=== PATIENT | female | born 1960 | race Caucasian/White ===

== ENCOUNTER 2016-10-13 13:52 | Inpatient (IN) | payer MEDICARE ==
[~2016-10-13] VITALS: Ht 165.1 cm; Wt 87.3 kg
[~2016-10-13 13:52] MED LIST: ALBUTEROL INH; BACL10TA2 OR; IBUP600T OR; LIDO5DIS EX; MAXA10TA17 OR; MIRALEX PO; NEUR300C OR; NEUR400C OR; NORT25CA2 PO; OMEP20CA3 PO; OPAN10TA17 OR; OXYC10TA97 PO; PERC5TAB8 OR; PREG100CA OR; PROM25TA3 PO; PROZ20CA OR; RANI150C PO; SENN15TA2 OR; SKEL800T5 OR; STOOL SOFTNER PO; SYMB80AE IN; TIZA4TAB OR; TRAM50TA2 OR; TYLE650T25 PO; VALI5TAB OR; VOLT1GEL TOP; ZOFR8TAB OR
[2016-10-13] MEDS ORDERED: FLEET ENEMA PR PRN (15:30)
[2016-10-13] MEDS ORDERED: HYDROmorphone (DILAUDID) 4 MG TAB PO PRN (15:30)
[2016-10-13] MEDS ORDERED: SIMETHICONE 80 MG CHEW TAB PO PRN (15:30)
[2016-10-13 16:00] VITALS: BP 169/77
[2016-10-13] MEDS ORDERED: ANALGESIC BALM CRM 120 GM TOP PRN (16:15)
[2016-10-13] MEDS ORDERED: PANT40TA2 PO (17:02)
[2016-10-13] MEDS ORDERED: DILA2TAB6 PO (17:02)
[2016-10-13] MEDS ORDERED: BUSP1TAB PO (17:02)
[2016-10-13] MEDS ORDERED: TYLE325C PO (17:02)
[2016-10-13] MEDS ORDERED: LIDO5TD TOP (17:02)
[2016-10-13] MEDS ORDERED: GABA-282 PO (17:02)
[2016-10-13] MEDS ORDERED: FLUO20CA19 PO (17:02)
[2016-10-13] MEDS ORDERED: MAXA10TA14 PO (17:03)
[2016-10-13 17:07] LABS: MEAN CORPUSCULAR HEMOGLOBIN 31.3 pg (27.0-33.0); MEAN CORPUSCULAR HGB CONC 32.9 g/dl (32.0-36.5); MEAN CORPUSCULAR VOLUME 95.3 fl (80.0-96.0); RED CELL DISTRIBUTION WIDTH 12.9 % (11.5-14.5); WHITE BLOOD COUNT 6.4 K/mm3 (4.0-10.0)
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
[2016-10-13] MEDS: NYSTATIN 500,000 U/5 ML SUSP UDC SSP SCH ×2 (18:16→21:37)
[2016-10-13] MEDS: GABAPENTIN 300 MG CAP PO SCH ×2 (18:16→21:38)
[2016-10-13] MEDS: HYDROmorphone 2 MG TAB PO PRN ×2 (18:17→22:31)
[2016-10-13] MEDS: ACETAMINOPHEN TAB 650MG DOSE (2X325MG) PO PRN (19:55)
[2016-10-13 20:00] VITALS: BP 138/63
[2016-10-13] MEDS: **NOTE PATIENT COMMENT** MISC XX SCH (21:00)
[2016-10-13] MEDS: BETHANECHOL 10 MG TAB PO SCH (21:37)
[2016-10-13] MEDS: HEPARIN SOD (PORCINE) 5000 UNITS/ML VIAL SC SCH (21:37)
[2016-10-13] MEDS: busPIRone 5 MG TAB PO SCH (21:37)
[2016-10-13] MEDS: FLUoxetine 20 MG CAP PO SCH (21:38)
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
[2016-10-14] MEDS: HYDROmorphone 2 MG TAB PO PRN ×5 (02:59→22:18)
[2016-10-14 06:00] VITALS: BP 162/80
[2016-10-14] MEDS: ACETAMINOPHEN TAB 650MG DOSE (2X325MG) PO PRN (06:01)
[2016-10-14 07:46] LABS: BASO # 0.1 K/mm3 (0.0-0.2); BASO % 0.9 % (0.0-1.0); EOS # 0.3 K/mm3 (0.0-0.50); EOS % 4.5 % (0.0-3.0); LARGE UNSTAINED CELL # 0.2 K/mm3 (0.0-0.4); LYMPH # 1.2 K/mm3 (1.5-4.5); LYMPH % 17.4 % (24.0-44.0); MEAN CORPUSCULAR HEMOGLOBIN 31.5 pg (27.0-33.0); MEAN CORPUSCULAR HGB CONC 33.1 g/dl (32.0-36.5); MEAN CORPUSCULAR VOLUME 95.3 fl (80.0-96.0); MONO # 0.4 K/mm3 (0.0-0.8); NEUTROPHILS # 4.9 K/mm3 (1.8-7.7); NEUTROPHILS % 69.3 % (36.0-66.0); PLATELET COUNT, AUTOMATED 413 k/mm3 (150-450); WHITE BLOOD COUNT 7.1 K/mm3 (4.0-10.0)
[2016-10-14 07:47] LABS: ALBUMIN 2.1 GM/DL (3.2-5.2); ALBUMIN/GLOBULIN RATIO 0.72 (1.00-1.93); ALKALINE PHOSPHATASE 78 U/L (45-117); ALT/SGPT 53 U/L (12-78); ANION GAP 8 MEQ/L (8-16); AST/SGOT 75 U/L (15-37); BILIRUBIN,TOTAL 0.6 MG/DL (0.2-1.0); BLOOD UREA NITROGEN 7 MG/DL (7-18); CALCIUM LEVEL 8.2 MG/DL (8.5-10.1); CARBON DIOXIDE LEVEL 36 MEQ/L (21-32); CHLORIDE LEVEL 98 MEQ/L (98-107); CREATININE FOR GFR 0.37 MG/DL (0.55-1.02); GLOMERULAR FILTRATION RATE > 60.0 (>51); GLUCOSE, FASTING 100 MG/DL (70-105); MAGNESIUM LEVEL 1.9 MG/DL (1.8-2.4); POTASSIUM SERUM 3.1 MEQ/L (3.5-5.1); SODIUM LEVEL 142 MEQ/L (136-145)
[2016-10-14] MEDS: FLUoxetine 20 MG CAP PO SCH ×2 (08:22→22:03)
[2016-10-14] MEDS: BETHANECHOL 10 MG TAB PO SCH ×2 (08:22→22:03)
[2016-10-14] MEDS: GABAPENTIN 300 MG CAP PO SCH (08:22)
[2016-10-14] MEDS: OMEPRAZOLE 20 MG CAP PO SCH (08:22)
[2016-10-14] MEDS: busPIRone 5 MG TAB PO SCH ×2 (08:23→22:04)
[2016-10-14] MEDS: HEPARIN SOD (PORCINE) 5000 UNITS/ML VIAL SC SCH ×2 (08:23→22:05)
[2016-10-14] MEDS: NYSTATIN 500,000 U/5 ML SUSP UDC SSP SCH ×3 (08:23→22:04)
[2016-10-14] MEDS: LIDOCAINE 5% (LIDODERM) PATCH TD SCH (08:24)
[2016-10-14] MEDS ORDERED: FLUoxetine 20 MG CAP PO SCH (09:00)
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
[2016-10-14] MEDS ORDERED: POTASSIUM CHLORIDE 10 MEQ SR TABLET PO ONE (12:00)
[2016-10-14] MEDS ORDERED: ISOVUE-370 76% 100ML VIAL (Q9967) As Ordered ONE (12:46)
[2016-10-14 12:51] LABS: FERRITIN 579 NG/ML (8-252); PERCENT SATURATION 29.3 % (13.2-45.0); TOTAL IRON BINDING CAPACITY 164 UG/DL (250-450)
[2016-10-14 12:53] LABS: FOLATE 10.7 NG/ML (>5.4); VITAMIN B12 LEVEL 661 PG/ML (247-911)
[2016-10-14 14:00] VITALS: BP 146/74
--- NOTE | 2016-10-14 14:00 | REP ---
Bilateral lower extremity Duplex Doppler venous ultrasound: Real time compression and duplex Doppler interrogation of the bilateral lower extremity deep venous system is performed. Bilaterally, the common femoral, superficial femoral and popliteal veins are fully compressible with transducer pressure and demonstrate normal spontaneous and phasic flow, without evidence of deep venous thrombosis. Impression: No evidence of deep venous thrombosis of the bilateral lower extremity femoral popliteal venous system. Signed by Mu Valdez MD 10/14/2016 01:52 P
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
--- NOTE | 2016-10-14 14:35 | REP ---
CT of the chest, CT pulmonary angiography: There are no comparison chest CT studies. The study is performed with intravenous contrast. There are no emboli in the pulmonary trunk or in the central pulmonary arteries. There are no emboli in the pulmonary artery lobe or segment branches. There are moderate bilateral pleural effusions. There are no infiltrates. There are no nodules or masses. There is a nondisplaced fracture posteriorly in the right 12th rib at the costovertebral junction. There are pedicle screws and stabilization rods spanning the thoracolumbar junction. No vertebral body compression deformities are identified. No sternal fractures are identified. No clavicle or scapular fractures are identified. There is no mediastinal hematoma. The thoracic aorta is unremarkable. The cardiac size is upper normal. The visualized upper abdominal contents are unremarkable. Impression: No evidence of pulmonary embolus. Moderate bilateral pleural effusions. A nondisplaced right 12th rib fracture posteriorly at the costovertebral junction. Spinal stabilization rods at the thoracolumbar junction. Signed by Mu Bermudez MD 10/14/2016 02:27 P
[2016-10-14] MEDS: NS 1,000 ML IV SCH (15:31)
[2016-10-14] MEDS: GABAPENTIN 400 MG CAP PO SCH ×2 (17:23→22:03)
[2016-10-14 20:30] VITALS: BP 162/93
[2016-10-14] MEDS: **NOTE PATIENT COMMENT** MISC XX SCH (21:00)
[2016-10-15] MEDS: HYDROmorphone 2 MG TAB PO PRN ×4 (02:53→20:46)
[2016-10-15 06:00] VITALS: BP 161/77
[2016-10-15 07:22] LABS: MEAN CORPUSCULAR HEMOGLOBIN 31.3 pg (27.0-33.0); MEAN CORPUSCULAR HGB CONC 32.9 g/dl (32.0-36.5); MEAN CORPUSCULAR VOLUME 95.2 fl (80.0-96.0); RED CELL DISTRIBUTION WIDTH 13.6 % (11.5-14.5)
[2016-10-15 07:41] LABS: ALBUMIN 2.1 GM/DL (3.2-5.2); ALBUMIN/GLOBULIN RATIO 0.58 (1.00-1.93); ALKALINE PHOSPHATASE 97 U/L (45-117); ALT/SGPT 103 U/L (12-78); ANION GAP 5 MEQ/L (8-16); AST/SGOT 234 U/L (15-37); BILIRUBIN,TOTAL 0.4 MG/DL (0.2-1.0); BLOOD UREA NITROGEN 10 MG/DL (7-18); CALCIUM LEVEL 8.4 MG/DL (8.5-10.1); CARBON DIOXIDE LEVEL 35 MEQ/L (21-32); CHLORIDE LEVEL 99 MEQ/L (98-107); CREATININE FOR GFR 0.47 MG/DL (0.55-1.02); GLOMERULAR FILTRATION RATE > 60.0 (>51); GLUCOSE, FASTING 107 MG/DL (70-105); SODIUM LEVEL 139 MEQ/L (136-145); TOTAL PROTEIN 5.7 GM/DL (6.4-8.2)
[2016-10-15] MEDS: BISACODYL 5 MG TAB PO PRN (07:44)
[2016-10-15] MEDS: MOM 30ML SUSPENSION UDC PO PRN (07:44)
[2016-10-15] MEDS: NYSTATIN 500,000 U/5 ML SUSP UDC SSP SCH ×3 (09:32→20:46)
[2016-10-15] MEDS: NS 1,000 ML IV SCH (09:32)
[2016-10-15] MEDS: OMEPRAZOLE 20 MG CAP PO SCH (09:32)
[2016-10-15] MEDS: HEPARIN SOD (PORCINE) 5000 UNITS/ML VIAL SC SCH ×2 (09:32→20:46)
[2016-10-15] MEDS: BETHANECHOL 10 MG TAB PO SCH ×2 (09:33→20:46)
[2016-10-15] MEDS: GABAPENTIN 400 MG CAP PO SCH ×3 (09:33→20:43)
[2016-10-15] MEDS: busPIRone 5 MG TAB PO SCH ×2 (09:33→20:42)
[2016-10-15] MEDS: FLUoxetine 20 MG CAP PO SCH ×2 (09:33→20:43)
[2016-10-15] MEDS: LIDOCAINE 5% (LIDODERM) PATCH TD SCH (09:34)
[2016-10-15 14:00] VITALS: BP 125/61
[2016-10-15 20:00] VITALS: BP 136/70
[2016-10-15] MEDS: **NOTE PATIENT COMMENT** MISC XX SCH (20:47)
[2016-10-16] MEDS: HYDROmorphone 2 MG TAB PO PRN ×5 (01:28→20:18)
[2016-10-16 04:30] VITALS: BP 153/75
[2016-10-16 06:41] LABS: MEAN CORPUSCULAR HGB CONC 32.9 g/dl (32.0-36.5); MEAN CORPUSCULAR VOLUME 94.1 fl (80.0-96.0); RED CELL DISTRIBUTION WIDTH 13.8 % (11.5-14.5); WHITE BLOOD COUNT 7.6 K/mm3 (4.0-10.0)
[2016-10-16 07:25] LABS: ALBUMIN 2.2 GM/DL (3.2-5.2); ALBUMIN/GLOBULIN RATIO 0.63 (1.00-1.93); ALKALINE PHOSPHATASE 106 U/L (45-117); ALT/SGPT 142 U/L (12-78); ANION GAP 9 MEQ/L (8-16); AST/SGOT 247 U/L (15-37); BILIRUBIN,TOTAL 0.4 MG/DL (0.2-1.0); BLOOD UREA NITROGEN 6 MG/DL (7-18); CALCIUM LEVEL 8.3 MG/DL (8.5-10.1); CARBON DIOXIDE LEVEL 32 MEQ/L (21-32); CHLORIDE LEVEL 101 MEQ/L (98-107); CREATININE FOR GFR 0.47 MG/DL (0.55-1.02); GLOMERULAR FILTRATION RATE > 60.0 (>51); GLUCOSE, FASTING 107 MG/DL (70-105); POTASSIUM SERUM 3.6 MEQ/L (3.5-5.1); SODIUM LEVEL 142 MEQ/L (136-145); TOTAL PROTEIN 5.7 GM/DL (6.4-8.2)
[2016-10-16] MEDS: HEPARIN SOD (PORCINE) 5000 UNITS/ML VIAL SC SCH ×2 (09:48→20:17)
[2016-10-16] MEDS: GABAPENTIN 400 MG CAP PO SCH ×3 (09:48→20:17)
[2016-10-16] MEDS: FLUoxetine 20 MG CAP PO SCH ×2 (09:48→20:16)
[2016-10-16] MEDS: NYSTATIN 500,000 U/5 ML SUSP UDC SSP SCH ×3 (09:48→20:16)
[2016-10-16] MEDS: BETHANECHOL 10 MG TAB PO SCH ×2 (09:48→20:16)
[2016-10-16] MEDS: OMEPRAZOLE 20 MG CAP PO SCH (09:49)
[2016-10-16] MEDS: busPIRone 5 MG TAB PO SCH ×2 (09:49→20:16)
[2016-10-16] MEDS: MOM 30ML SUSPENSION UDC PO PRN (09:50)
[2016-10-16] MEDS: BISACODYL 5 MG TAB PO PRN (09:50)
[2016-10-16] MEDS: LIDOCAINE 5% (LIDODERM) PATCH TD SCH (09:50)
[2016-10-16 14:00] VITALS: BP 115/59
[2016-10-16 20:00] VITALS: BP 138/66
[2016-10-16] MEDS: **NOTE PATIENT COMMENT** MISC XX SCH (20:17)
[2016-10-16] MEDS: MIRALAX *UNIT DOSE* 17GM PACKET PO PRN (20:25)
[2016-10-16] MEDS: MAALOX 30 ML SUSP *UDC PO PRN (20:25)
[2016-10-17] MEDS: HYDROmorphone 2 MG TAB PO PRN ×6 (01:29→22:15)
[2016-10-17 05:30] VITALS: BP 125/58
[2016-10-17] MEDS ORDERED: HYDROmorphone 2 MG TAB PO ONE (07:00)
[2016-10-17 08:07] LABS: MEAN CORPUSCULAR HEMOGLOBIN 30.9 pg (27.0-33.0); MEAN CORPUSCULAR HGB CONC 31.9 g/dl (32.0-36.5); MEAN CORPUSCULAR VOLUME 96.9 fl (80.0-96.0); RED CELL DISTRIBUTION WIDTH 14.5 % (11.5-14.5); WHITE BLOOD COUNT 9.6 K/mm3 (4.0-10.0)
[2016-10-17 08:20] LABS: ALBUMIN 2.6 GM/DL (3.2-5.2); ALBUMIN/GLOBULIN RATIO 0.76 (1.00-1.93); ALKALINE PHOSPHATASE 126 U/L (45-117); ALT/SGPT 118 U/L (12-78); ANION GAP 10 MEQ/L (8-16); AST/SGOT 112 U/L (15-37); BILIRUBIN,TOTAL 0.4 MG/DL (0.2-1.0); BLOOD UREA NITROGEN 8 MG/DL (7-18); CALCIUM LEVEL 8.5 MG/DL (8.5-10.1); CARBON DIOXIDE LEVEL 31 MEQ/L (21-32); CHLORIDE LEVEL 98 MEQ/L (98-107); CREATININE FOR GFR 0.63 MG/DL (0.55-1.02); GLOMERULAR FILTRATION RATE > 60.0 (>51); GLUCOSE, FASTING 123 MG/DL (70-105); POTASSIUM SERUM 4.4 MEQ/L (3.5-5.1); SODIUM LEVEL 139 MEQ/L (136-145)
[2016-10-17] MEDS: LIDOCAINE 5% (LIDODERM) PATCH TD SCH (09:48)
[2016-10-17] MEDS: HEPARIN SOD (PORCINE) 5000 UNITS/ML VIAL SC SCH ×2 (09:49→21:27)
[2016-10-17] MEDS: NYSTATIN 500,000 U/5 ML SUSP UDC SSP SCH ×3 (09:49→21:28)
[2016-10-17] MEDS: MOM 30ML SUSPENSION UDC PO PRN ×2 (09:49→09:54)
[2016-10-17] MEDS: MIRALAX *UNIT DOSE* 17GM PACKET PO PRN ×2 (09:49→09:54)
[2016-10-17] MEDS: OMEPRAZOLE 20 MG CAP PO SCH (09:50)
[2016-10-17] MEDS: busPIRone 5 MG TAB PO SCH ×2 (09:51→21:28)
[2016-10-17] MEDS: BETHANECHOL 10 MG TAB PO SCH ×3 (09:51→21:28)
[2016-10-17] MEDS: GABAPENTIN 400 MG CAP PO SCH ×3 (09:51→21:28)
[2016-10-17] MEDS: FLUoxetine 20 MG CAP PO SCH ×2 (09:51→21:28)
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
[2016-10-17 14:48] VITALS: BP 114/76
[2016-10-17 14:55] VITALS: BP 125/64
[2016-10-17] MEDS: tiZANidine 4 MG TAB PO SCH ×2 (16:16→21:28)
--- NOTE | 2016-10-17 18:07 | IPNPDOC ---
[facility] Progress Note DATE OF SERVICE: 10/17/16 DATE OF ADMISSION: Oct 13, 2016 at 16:00 INPATIENT REHABILITATION ADMISSION DAY: #5 SUBJECTIVE: Patient is a 55-year-old white female multiple trauma including possible T12 Valerie D paraparesis related to T12 and L1 vertebral fractures which are now status post decompression with T10-L2 laminectomy rodding and fusion as well as patient with sternal fracture and hematoma including pericardial hematoma and posterior cervical sprain. Patient currently being stabilize for the neck with an [place] collar and the thoracolumbar surgery and fusion with a TLSO clamshell orthosis. Patient does have a moderate anemia related to this event as well as rhabdomyolysis. Patient does not continued diffuse pain with transfers. Patient noting more left pain and lower back and flank pain and stiffness today. She feels she is gaining less benefit of the Dilaudid. She has not had TENS trial or icing to the back. She is not candidate for pain tramadol due to being on 3 serotonin agents already. However patient noted to be making good progress in spite of that through the weekend with PT and OT. ALLERGIES: See Below MEDICATIONS: Reviewed, see below. OBJECTIVE: VITAL SIGNS: Please see below. PHYSICAL EXAMINATION: GENERAL: Short obese middle-aged white female in mild muscle skeletal distress wearing a TLSO. Patient alert and well oriented. HEENT: Normocephalic/atraumatic with [place] collar on. CARDIOVASCULAR: Regular rate and rhythm with normal S1 and S2. 2/4 bilateral radial pulses. LUNGS: All aguirre clear to auscultation. ABDOMEN: Obese. As patient is sitting up in her TLSO no palpation or auscultation this morning on exam. NEUROLOGICAL: Patient is alert and oriented 4. Speech is clear coherent and appropriate. Affect is in general pleasant and cooperative but patient is somewhat anxious especially regarding moving. She is following directions from nursing and therapy without problems. SKIN: Multiple abrasions there are healing. LABORATORY DATA: Reviewed. Please see below. MICROBIOLOGY: Please see below. IMAGING: Bilateral lower extremity Duplex Doppler venous ultrasound: Real time compression and duplex Doppler interrogation of the bilateral lower extremity deep venous system is performed. Bilaterally, the common femoral, superficial femoral and popliteal veins are fully compressible with transducer pressure and demonstrate normal spontaneous and phasic flow, without evidence of deep venous thrombosis. Impression: No evidence of deep venous thrombosis of the bilateral lower extremity femoral popliteal venous system. Signed by Mu Valdez MD 10/14/2016 01:[address] of the chest, CT pulmonary angiography: There are no comparison chest CT studies. The study is performed with intravenous contrast. There are no emboli in the pulmonary trunk or in the central pulmonary arteries. There are no emboli in the pulmonary artery lobe or segment branches. There are moderate bilateral pleural effusions. There are no infiltrates. There are no nodules or masses. There is a nondisplaced fracture posteriorly in the right 12th rib at the costovertebral junction. There are pedicle screws and stabilization rods spanning the thoracolumbar junction. No vertebral body compression deformities are identified. No sternal fractures are identified. No clavicle or scapular fractures are identified. There is no mediastinal hematoma. The thoracic aorta is unremarkable. The cardiac size is upper normal. The visualized upper abdominal contents are unremarkable. Impression: No evidence of pulmonary embolus. Moderate bilateral pleural effusions. A nondisplaced right 12th rib fracture posteriorly at the costovertebral junction. Spinal stabilization rods at the thoracolumbar junction. Signed by Mu Bermudez MD 10/14/2016 02:27 PM LIVER U/S of 10/17 results are pending. DVT prophylaxis ordered?: Heparin, MARK hose, and sequential stockings. ASSESSMENT AND PLAN: 1. Rehabilitation of multiple trauma including what appeared to be a T12 Valerie D paraparesis mainly affecting the left lower extremity along with cervical strain and sternal fracture with hematoma: Patient starting into evaluation with physical and occupational therapy today. Currently no signs of cognitive problems so will not be starting OT evaluation at this time. Constipation is a problem, though some relief with high volume enema. Tramadol is not appropriate agent as patient is currently on BuSpar, Prozac and Maxalt. Adding additional serotonin agent would be increasing the risk of serotonin syndrome. Patient noted to have a bit of back spasm in therapy. We'll try and get more cooling to the back and get TENS trial started as well as I will go ahead and start her on tizanidine 2 mg 3 times a day. Rehabilitation team rounds: Patient overall he is working hard making good progress and at this time the team feels that she will be ready for discharge around October 27. 2. Constipation: I have increased Urecholine to TID. I will have her try a soap suds enema again tonight. 3. Moderate anemia: Stable at this hemoglobin and hematocrit are 9.5 and 29.7%. We will continue to monitor this. 4. DVT prophylaxis: Patient currently on heparin with MARK hose and sequential stockings. TIME SPENT: Chart Review, examination and documentation require greater than 25 minutes. Allergies Coded Allergies: Morphine (Verified Adverse Reaction, Intermediate, MEMORY LOSS, OUT OF MIND, NAUSEA, SEVERE CONSTIPATION, 06/14/12) LOSS OF APPETITE Opioid Analgesics (Verified Adverse Reaction, Intermediate, MEMORY LOSS, FELT OUT OF HER MIND, NAUSEA,, 06/14/12) SEVERE, CONSTIPATION, LOSS OF APPETITE. Oxycodone (Verified Adverse Reaction, Intermediate, MEMORY LOSS, OUT OF MIND, NAUSEA, SEVERE CONSTIPATION,, 06/14/12) LOSS OF APPETITE Vital Signs Vital Signs Date Time Temp Pulse Resp B/P (MAP) Pulse Ox O2 Delivery O2 Flow Rate FiO2 10/17/16 14:55 99.0 86 18 125/64 (84) 93 Room Air 10/14/16 09:00 1.0 Laboratory Data CBC/BMP Laboratory Tests 10/17/16 07:41 Red Blood Count 3.06 L, Mean Corpuscular Volume 96.9 H, Mean Corpuscular Hemoglobin 30.9, Mean Corpuscular Hemoglobin Concent 31.9 L, Red Cell Distribution Width 14.5, Calcium Level 8.5, Aspartate Amino Transf (AST/SGOT) 112 H, Alanine Aminotransferase (ALT/SGPT) 118 H, Total Creatine Kinase 181, Alkaline Phosphatase 126 H, Total Bilirubin 0.4, Total Protein 6.0 L, Albumin 2.6 L Labs 24H Laboratory Tests 2 10/17/16 07:39: Hepatitis A IgM Antibody NEGATIVE, Hepatitis B Surface Antigen NEGATIVE, Hepatitis B Core IgM Antibody NEGATIVE, Hepatitis C Antibody Index 0.1 10/17/16 07:41: Anion Gap 10, Glomerular Filtration Rate > 60.0, Blood Urea Nitrogen 8, Creatinine 0.63, Sodium Level 139, Potassium Level 4.4#, Chloride Level 98, Carbon Dioxide Level 31, Calcium Level 8.5, Aspartate Amino Transf (AST/SGOT) 112H, Alanine Aminotransferase (ALT/SGPT) 118H, Total Creatine Kinase 181, Alkaline Phosphatase 126H, Total Bilirubin 0.4, Total Protein 6.0L, Albumin 2.6L , Albumin/Globulin Ratio 0.76L Microbiology Microbiology 10/13/16 Urine Culture - Final, Complete Current Medications Current Medications Current Medications Acetaminophen (Tylenol Tab) 650 mg Q6HP PRN PO PAIN OR FEVER Last administered on 10/14/16 06:01; Start 10/13/16 at 15:30; Stop 11/12/16 at 15:29 Al Hydrox/Mg Hydrox/Simethicone (Mylanta) 30 ml Q4HP PRN PO DYSPEPSIA Last administered on 10/16/16 20:25; Start 10/13/16 at 15:30; Stop 11/12/16 at 15:29 Bethanechol Chloride (Urecholine) 10 mg BID PO Last administered on 10/17/16 09:51; Start 10/13/16 at 21:00; Stop 10/17/16 at 10:02; Status DC Bethanechol Chloride (Urecholine) 10 mg TID PO Last administered on 10/17/16 16:16; Start 10/17/16 at 16:00; Stop 11/16/16 at 15:59 Bisacodyl (Dulcolax Tab) 5 mg DAILYPRN PRN PO CONSTIPATION Last administered on 10/16/16 09:50; Start 10/13/16 at 15:30; Stop 11/12/16 at 15:29 Buspirone HCl (Buspar) 7.5 mg BID PO Last administered on 10/17/16 09:51; Start 10/13/16 at 21:00; Stop 11/12/16 at 20:59 Fluoxetine HCl (PROzac) 20 mg BID PO Last administered on 10/17/16 09:51; Start 10/13/16 at 21:00; Stop 11/13/16 at 08:59 Fluoxetine HCl (PROzac) 20 mg DAILY PO ; Start 10/14/16 at 09:00; Stop 10/14/16 at 09:00; Status DC Gabapentin (Neurontin) 300 mg TID PO Last administered on 10/14/16 08:22; Start 10/13/16 at 16:00; Stop 10/14/16 at 09:53; Status DC Gabapentin (Neurontin) 400 mg TID PO Last administered on 10/17/16 16:16; Start 10/14/16 at 16:00; Stop 11/13/16 at 15:59 Heparin Sodium (Porcine) (Heparin) 5,000 units Q12H SC Last administered on 09:49; Start 10/13/16 at 21:00; Stop 10/21/16 at 23:55 Home Med (Med Rec Complete!) ASDIRECTED XX ; Start 10/13/16 at 17:15; Stop 12/20 at 17:23; Status DC Hydromorphone HCl (Dilaudid) 2 mg Q4HP PRN PO MODERATE/SEVERE PAIN (PS 5-10) Last administered on 10/14/16 02:59; Start 10/13/16 at 15:30; Stop 10/20/16 at 15:29 Hydromorphone HCl (Dilaudid) 4 mg Q4HP PRN PO SEVERE PAIN (PS 8-10); Start 12/20 at 15:30; Stop 10/14/16 at 00:18; Status DC Hydromorphone HCl (Dilaudid) 4 mg Q4HP PRN PO SEVERE PAIN (PS 8-10) Last administered on 10/17/16 13:57; Start 10/14/16 at 00:18; Stop 10/20/16 at 15:29 Lidocaine (Lidoderm Patch) 1 patch DAILY TD Last administered on 10/17/16 09: 48; Start 10/14/16 at 09:00; Stop 11/13/16 at 08:59 Magnesium Hydroxide (Milk Of Magnesia) 30 ml DAILYPRN PRN PO CONSTIPATION Last administered on 10/17/16 09:54; Start 10/13/16 at 15:30; Stop 11/12/16 at 15:29 Menthol/Methyl Salicylate (Bengay Cream) Neck, ribs, back QIDP PRN TOP PAIN; Start 10/13/16 at 16:15; Stop 11/12/16 at 16:14 Non-Formulary Medication ( See Comment Field Below ) REMOVE LIDODERM PATCH DAILY@21 XX Last administered on 10/16/16 20:17; Start 10/13/16 at 21:00; Stop 11/12/16 at 20:59 Nystatin (Mycostatin) 5 ml TID SSP Last administered on 10/17/16 16:16; Start 10/13/16 at 16:00; Stop 10/18/16 at 15:59 Omeprazole (PriLOSEC) 20 mg DAILY PO Last administered on 10/17/16 09:50; Start 10/14/16 at 09:00; Stop 11/13/16 at 08:59 Polyethylene Glycol (Miralax) 1 pkt DAILY PRN PO CONSTIPATION Last administered on 10/17/16 09:54; Start 10/13/16 at 15:30; Stop 11/12/16 at 15:29 Rizatriptan Benzoate (Maxalt-Sales And Service Specialist) 10 mg Q2HP PRN PO MIGRAINE; Start 10/13/16 at 15:30; Stop 11/12/16 at 15:29 Simethicone (Mylicon) 80 mg QIDP PRN PO BLOATING; Start 10/13/16 at 15:30; Stop 11/12/16 at 15:29 Sodium Biphosphate/ Sodium Phosphate (Fleet Enema) 1 ea DAILYPRN PRN [place] CONSTIPATION Last administered on 10/14/16 22:18; Start 10/13/16 at 15:30; Stop 11/12/16 at 15:29 Sodium Chloride 1,000 ml @ 50 mls/hr Q20H IV Last administered on 10/15/16 09 :32; Start 10/14/16 at 11:57; Stop 10/15/16 at 21:23; Status DC Tizanidine HCl (Zanaflex) 2 mg Q8H PO Last administered on 10/17/16 16:16; Start 10/17/16 at 14:00; Stop 11/16/16 at 13:59 PRUDENCIO SAXENA MD Oct 17, 2016 18:06
--- NOTE | 2016-10-17 19:27 | REP ---
RIGHT UPPER QUADRANT ULTRASOUND: Real-time sonographic evaluation of the right upper extremity is performed. There is sludge in the gallbladder without definite stones. There is no gallbladder wall thickening or pericholecystic fluid. There is no intrahepatic biliary dilatation. The common bile duct is upper limits of normal at 7-8 mm. Echotexture of the liver is diffusely heterogenous suggesting some degree of fibrofatty infiltration. No gross liver or pancreatic mass is seen. The right kidney demonstrates no hydronephrosis with normal size of 10.4 cm in length. There is trace perihepatic free fluid. IMPRESSION: Sludge in the gallbladder without stones or gallbladder wall thickening. Common bile duct is upper limits of normal to slightly dilated at 8 mm. Diffuse fiber fatty infiltration of the liver. Trace perihepatic fluid. Signed by Mu Valdez MD 10/18/2016 12:35 P
[2016-10-17 20:00] VITALS: BP 113/59
[2016-10-17] MEDS: **NOTE PATIENT COMMENT** MISC XX SCH (21:00)
[2016-10-18] MEDS: ACETAMINOPHEN TAB 650MG DOSE (2X325MG) PO PRN (00:29)
[2016-10-18] MEDS: HYDROmorphone 2 MG TAB PO PRN ×5 (02:18→20:32)
[2016-10-18 06:00] VITALS: BP_SYST 131; BP_SYST 137; BP_DIAS 63
[2016-10-18] MEDS: tiZANidine 4 MG TAB PO SCH ×3 (06:18→21:31)
[2016-10-18 07:49] LABS: MEAN CORPUSCULAR HEMOGLOBIN 31.1 pg (27.0-33.0); MEAN CORPUSCULAR HGB CONC 31.8 g/dl (32.0-36.5); MEAN CORPUSCULAR VOLUME 97.8 fl (80.0-96.0); RED CELL DISTRIBUTION WIDTH 14.7 % (11.5-14.5); WHITE BLOOD COUNT 8.2 K/mm3 (4.0-10.0)
[2016-10-18] MEDS: LIDOCAINE 5% (LIDODERM) PATCH TD SCH (07:49)
[2016-10-18] MEDS: HEPARIN SOD (PORCINE) 5000 UNITS/ML VIAL SC SCH ×2 (07:49→20:33)
[2016-10-18 08:12] LABS: ALBUMIN 2.5 GM/DL (3.2-5.2); ALBUMIN/GLOBULIN RATIO 0.81 (1.00-1.93); ALKALINE PHOSPHATASE 121 U/L (45-117); ALT/SGPT 80 U/L (12-78); ANION GAP 7 MEQ/L (8-16); AST/SGOT 54 U/L (15-37); BILIRUBIN,TOTAL 0.4 MG/DL (0.2-1.0); BLOOD UREA NITROGEN 7 MG/DL (7-18); CALCIUM LEVEL 7.8 MG/DL (8.5-10.1); CARBON DIOXIDE LEVEL 32 MEQ/L (21-32); CHLORIDE LEVEL 101 MEQ/L (98-107); GLOMERULAR FILTRATION RATE > 60.0 (>51); GLUCOSE, FASTING 90 MG/DL (70-105); POTASSIUM SERUM 4.8 MEQ/L (3.5-5.1); SODIUM LEVEL 140 MEQ/L (136-145); TOTAL PROTEIN 5.6 GM/DL (6.4-8.2)
[2016-10-18] MEDS: busPIRone 5 MG TAB PO SCH ×2 (08:32→20:32)
[2016-10-18] MEDS: GABAPENTIN 400 MG CAP PO SCH ×3 (08:32→20:33)
[2016-10-18] MEDS: NYSTATIN 500,000 U/5 ML SUSP UDC SSP SCH (08:32)
[2016-10-18] MEDS: FLUoxetine 20 MG CAP PO SCH ×2 (08:32→20:33)
[2016-10-18] MEDS: BETHANECHOL 10 MG TAB PO SCH ×3 (08:32→20:32)
[2016-10-18] MEDS: OMEPRAZOLE 20 MG CAP PO SCH (08:32)
--- NOTE | 2016-10-18 11:38 | IPNPDOC ---
[employer] Progress Note DATE OF SERVICE: 10/18/16 DATE OF ADMISSION: Oct 13, 2016 at 16:00 INPATIENT REHABILITATION ADMISSION DAY: #6 SUBJECTIVE: Patient is a 55-year-old white female multiple trauma including possible T12 Valerie D paraparesis related to T12 and L1 vertebral fractures which are now status post decompression with T10-L2 laminectomy rodding and fusion as well as patient with sternal fracture and hematoma including pericardial hematoma and posterior cervical sprain. Patient currently being stabilize for the neck with an [place] collar and the thoracolumbar surgery and fusion with a TLSO clamshell orthosis. Patient does have a moderate anemia related to this event as well as rhabdomyolysis. Patient does not continued diffuse pain with transfers. Patient noting more left pain and lower back and flank pain and stiffness today. She feels she is gaining less benefit of the Dilaudid. She has not had TENS trial or icing to the back. She is not candidate for pain tramadol due to being on 3 serotonin agents already. However patient noted to be making good progress in spite of that through the weekend with PT and OT. ALLERGIES: See Below MEDICATIONS: Reviewed, see below. OBJECTIVE: VITAL SIGNS: Please see below. PHYSICAL EXAMINATION: GENERAL: Short obese middle-aged white female in mild muscle skeletal distress wearing a TLSO. Patient alert and well oriented. HEENT: Normocephalic/atraumatic with [place] collar on. CARDIOVASCULAR: Regular rate and rhythm with normal S1 and S2. 2/4 bilateral radial pulses. LUNGS: All aguirre clear to auscultation. ABDOMEN: Obese. As patient is sitting up in her TLSO no palpation or auscultation this morning on exam. NEUROLOGICAL: Patient is alert and oriented 4. Speech is clear coherent and appropriate. Affect is in general pleasant and cooperative but patient is somewhat anxious especially regarding moving. She is following directions from nursing and therapy without problems. SKIN: Multiple abrasions there are healing. LABORATORY DATA: Reviewed. Please see below. MICROBIOLOGY: Please see below. IMAGING: RIGHT UPPER QUADRANT ULTRASOUND: Real-time sonographic evaluation of the right upper extremity is performed. There is sludge in the gallbladder without definite stones. There is no gallbladder wall thickening or pericholecystic fluid. There is no intrahepatic biliary dilatation. The common bile duct is upper limits of normal at 7-8 mm. Echotexture of the liver is diffusely heterogenous suggesting some degree of fibrofatty infiltration. No gross liver or pancreatic mass is seen. The right kidney demonstrates no hydronephrosis with normal size of 10.4 cm in length. There is trace perihepatic free fluid. IMPRESSION: Sludge in the gallbladder without stones or gallbladder wall thickening. Common bile duct is upper limits of normal to slightly dilated at 8 mm. Diffuse fiber fatty infiltration of the liver. Trace perihepatic fluid. Unreviewed DD: Mu Valdez MD, MD [id number]/17/[id number] DT: LINDA [id number]/[id number] DS: DVT prophylaxis ordered?: Heparin, MARK hose, and sequential stockings. ASSESSMENT AND PLAN: 1. Rehabilitation of multiple trauma including what appeared to be a T12 Valerie D paraparesis mainly affecting the left lower extremity along with cervical strain and sternal fracture with hematoma: Patient starting into evaluation with physical and occupational therapy today. Currently no signs of cognitive problems so will not be starting OT evaluation at this time. Constipation is a problem, though some relief with high volume enema. Tramadol is not appropriate agent as patient is currently on BuSpar, Prozac and Maxalt. Adding additional serotonin agent would be increasing the risk of serotonin syndrome. Patient noted to have a bit of back spasm in therapy. We'll try and get more cooling to the back and get TENS trial started as well as I will go ahead and start her on tizanidine 2 mg 3 times a day. These changes seem to be helping. 2. Constipation: I have increased Urecholine to TID. I will have her try a soap suds enema again tonight. 3. Moderate anemia: Stable at this hemoglobin and hematocrit are 9.3 and 29.2%. We will continue to monitor this. 4. DVT prophylaxis: Patient currently on heparin with MARK hose and sequential stockings. TIME SPENT: Chart Review, examination and documentation require greater than 25 minutes. Allergies Coded Allergies: Morphine (Verified Adverse Reaction, Intermediate, MEMORY LOSS, OUT OF MIND, NAUSEA, SEVERE CONSTIPATION, 06/14/12) LOSS OF APPETITE Opioid Analgesics (Verified Adverse Reaction, Intermediate, MEMORY LOSS, FELT OUT OF HER MIND, NAUSEA,, 06/14/12) SEVERE, CONSTIPATION, LOSS OF APPETITE. Oxycodone (Verified Adverse Reaction, Intermediate, MEMORY LOSS, OUT OF MIND, NAUSEA, SEVERE CONSTIPATION,, 06/14/12) LOSS OF APPETITE Vital Signs Vital Signs Date Time Temp Pulse Resp B/P (MAP) Pulse Ox O2 Delivery O2 Flow Rate FiO2 10/18/16 10:56 20 10/18/16 06:00 97.9 77 131/63 (85) 93 10/18/16 06:00 Room Air 10/14/16 09:00 1.0 Laboratory Data CBC/BMP Laboratory Tests 10/18/16 07:07 Red Blood Count 2.98 L, Mean Corpuscular Volume 97.8 H, Mean Corpuscular Hemoglobin 31.1, Mean Corpuscular Hemoglobin Concent 31.8 L, Red Cell Distribution Width 14.7 H, Calcium Level 7.8 L, Aspartate Amino Transf (AST/SGOT ) 54 H, Alanine Aminotransferase (ALT/SGPT) 80 H, Alkaline Phosphatase 121 H, Total Bilirubin 0.4, Total Protein 5.6 L, Albumin 2.5 L Labs 24H Laboratory Tests 2 10/18/16 07:07: Anion Gap 7L, Glomerular Filtration Rate > 60.0, Blood Urea Nitrogen 7, Creatinine 0.60, Sodium Level 140, Potassium Level 4.8, Chloride Level 101, Carbon Dioxide Level 32, Calcium Level 7.8L, Aspartate Amino Transf (AST/SGOT) 54H, Alanine Aminotransferase (ALT/SGPT) 80H, Alkaline Phosphatase 121H, Total Bilirubin 0.4, Total Protein 5.6L, Albumin 2.5L, Albumin/Globulin Ratio 0.81L Microbiology Microbiology 10/13/16 Urine Culture - Final, Complete Current Medications Current Medications Current Medications Acetaminophen (Tylenol Tab) 650 mg Q6HP PRN PO PAIN OR FEVER Last administered on 10/18/16 00:29; Start 10/13/16 at 15:30; Stop 11/12/16 at 15:29 Al Hydrox/Mg Hydrox/Simethicone (Mylanta) 30 ml Q4HP PRN PO DYSPEPSIA Last administered on 10/16/16 20:25; Start 10/13/16 at 15:30; Stop 11/12/16 at 15:29 Bethanechol Chloride (Urecholine) 10 mg BID PO Last administered on 10/17/16 09:51; Start 10/13/16 at 21:00; Stop 10/17/16 at 10:02; Status DC Bethanechol Chloride (Urecholine) 10 mg TID PO Last administered on 10/18/16 08:32; Start 10/17/16 at 16:00; Stop 11/16/16 at 15:59 Bisacodyl (Dulcolax Tab) 5 mg DAILYPRN PRN PO CONSTIPATION Last administered on 10/16/16 09:50; Start 10/13/16 at 15:30; Stop 11/12/16 at 15:29 Buspirone HCl (Buspar) 7.5 mg BID PO Last administered on 10/18/16 08:32; Start 10/13/16 at 21:00; Stop 11/12/16 at 20:59 Fluoxetine HCl (PROzac) 20 mg BID PO Last administered on 10/18/16 08:32; Start 10/13/16 at 21:00; Stop 11/13/16 at 08:59 Fluoxetine HCl (PROzac) 20 mg DAILY PO ; Start 10/14/16 at 09:00; Stop 10/14/16 at 09:00; Status DC Gabapentin (Neurontin) 300 mg TID PO Last administered on 10/14/16 08:22; Start 10/13/16 at 16:00; Stop 10/14/16 at 09:53; Status DC Gabapentin (Neurontin) 400 mg TID PO Last administered on 10/18/16 08:32; Start 10/14/16 at 16:00; Stop 11/13/16 at 15:59 Heparin Sodium (Porcine) (Heparin) 5,000 units Q12H SC Last administered on 07:49; Start 10/13/16 at 21:00; Stop 10/21/16 at 23:55 Home Med (Med Rec Complete!) ASDIRECTED XX ; Start 10/13/16 at 17:15; Stop 12/20 at 17:23; Status DC Hydromorphone HCl (Dilaudid) 2 mg Q4HP PRN PO MODERATE/SEVERE PAIN (PS 5-10) Last administered on 10/14/16 02:59; Start 10/13/16 at 15:30; Stop 10/23/16 at 23:55 Hydromorphone HCl (Dilaudid) 4 mg Q4HP PRN PO SEVERE PAIN (PS 8-10); Start 12/20 at 15:30; Stop 10/14/16 at 00:18; Status DC Hydromorphone HCl (Dilaudid) 4 mg Q4HP PRN PO SEVERE PAIN (PS 8-10) Last administered on 10/18/16 10:56; Start 10/14/16 at 00:18; Stop 10/23/16 at 23:55 Lidocaine (Lidoderm Patch) 1 patch DAILY TD Last administered on 10/18/16 07: 49; Start 10/14/16 at 09:00; Stop 11/13/16 at 08:59 Magnesium Hydroxide (Milk Of Magnesia) 30 ml DAILYPRN PRN PO CONSTIPATION Last administered on 10/17/16 09:54; Start 10/13/16 at 15:30; Stop 11/12/16 at 15:29 Menthol/Methyl Salicylate (Bengay Cream) Neck, ribs, back QIDP PRN TOP PAIN; Start 10/13/16 at 16:15; Stop 11/12/16 at 16:14 Non-Formulary Medication ( See Comment Field Below ) REMOVE LIDODERM PATCH DAILY@21 XX Last administered on 10/17/16 21:00; Start 10/13/16 at 21:00; Stop 11/12/16 at 20:59 Nystatin (Mycostatin) 5 ml TID SSP Last administered on 10/18/16 08:32; Start 10/13/16 at 16:00; Stop 10/18/16 at 15:59 Omeprazole (PriLOSEC) 20 mg DAILY PO Last administered on 10/18/16 08:32; Start 10/14/16 at 09:00; Stop 11/13/16 at 08:59 Polyethylene Glycol (Miralax) 1 pkt DAILY PRN PO CONSTIPATION Last administered on 10/17/16 09:54; Start 10/13/16 at 15:30; Stop 11/12/16 at 15:29 Rizatriptan Benzoate (Maxalt-Pouncing Lathe Operator) 10 mg Q2HP PRN PO MIGRAINE; Start 10/13/16 at 15:30; Stop 11/12/16 at 15:29 Simethicone (Mylicon) 80 mg QIDP PRN PO BLOATING; Start 10/13/16 at 15:30; Stop 11/12/16 at 15:29 Sodium Biphosphate/ Sodium Phosphate (Fleet Enema) 1 ea DAILYPRN PRN [place] CONSTIPATION Last administered on 10/14/16 22:18; Start 10/13/16 at 15:30; Stop 11/12/16 at 15:29 Sodium Chloride 1,000 ml @ 50 mls/hr Q20H IV Last administered on 10/15/16 09 :32; Start 10/14/16 at 11:57; Stop 10/15/16 at 21:23; Status DC Tizanidine HCl (Zanaflex) 2 mg Q8H PO Last administered on 10/18/16 06:18; Start 10/17/16 at 14:00; Stop 11/16/16 at 13:59 PRUDENCIO SAXENA MD Oct 18, 2016 11:38
[2016-10-18 14:00] VITALS: BP 124/66
[2016-10-18 19:57] VITALS: BP 115/58
[2016-10-18] MEDS: MIRALAX *UNIT DOSE* 17GM PACKET PO PRN (20:32)
[2016-10-18] MEDS: BISACODYL 5 MG TAB PO PRN (20:32)
[2016-10-18] MEDS: **NOTE PATIENT COMMENT** MISC XX SCH (20:38)
[2016-10-19] MEDS: HYDROmorphone 2 MG TAB PO PRN ×5 (01:00→20:01)
[2016-10-19] MEDS: tiZANidine 4 MG TAB PO SCH ×3 (05:42→21:08)
[2016-10-19 06:00] VITALS: BP 136/65
[2016-10-19] MEDS: MAALOX 30 ML SUSP *UDC PO PRN (06:11)
[2016-10-19 07:25] LABS: MEAN CORPUSCULAR HEMOGLOBIN 30.7 pg (27.0-33.0); MEAN CORPUSCULAR HGB CONC 32.3 g/dl (32.0-36.5); MEAN CORPUSCULAR VOLUME 95.2 fl (80.0-96.0); RED CELL DISTRIBUTION WIDTH 14.5 % (11.5-14.5); WHITE BLOOD COUNT 6.8 K/mm3 (4.0-10.0)
[2016-10-19 07:43] LABS: ALBUMIN 2.7 GM/DL (3.2-5.2); ALBUMIN/GLOBULIN RATIO 0.82 (1.00-1.93); ALKALINE PHOSPHATASE 131 U/L (45-117); ALT/SGPT 65 U/L (12-78); ANION GAP 9 MEQ/L (8-16); AST/SGOT 35 U/L (15-37); BILIRUBIN,TOTAL 0.4 MG/DL (0.2-1.0); BLOOD UREA NITROGEN 7 MG/DL (7-18); CALCIUM LEVEL 8.3 MG/DL (8.5-10.1); CARBON DIOXIDE LEVEL 30 MEQ/L (21-32); CHLORIDE LEVEL 100 MEQ/L (98-107); CREATININE FOR GFR 0.65 MG/DL (0.55-1.02); GLOMERULAR FILTRATION RATE > 60.0 (>51); GLUCOSE, FASTING 106 MG/DL (70-105); POTASSIUM SERUM 5.1 MEQ/L (3.5-5.1); SODIUM LEVEL 139 MEQ/L (136-145)
[2016-10-19] MEDS: FLUoxetine 20 MG CAP PO SCH ×2 (08:41→21:08)
[2016-10-19] MEDS: GABAPENTIN 400 MG CAP PO SCH ×3 (08:41→21:08)
[2016-10-19] MEDS: OMEPRAZOLE 20 MG CAP PO SCH (08:41)
[2016-10-19] MEDS: busPIRone 5 MG TAB PO SCH ×2 (08:41→21:06)
[2016-10-19] MEDS: LIDOCAINE 5% (LIDODERM) PATCH TD SCH (08:42)
[2016-10-19] MEDS: BETHANECHOL 10 MG TAB PO SCH ×3 (08:42→21:08)
[2016-10-19] MEDS: HEPARIN SOD (PORCINE) 5000 UNITS/ML VIAL SC SCH ×2 (08:42→21:04)
[2016-10-19] MEDS: MOM 30ML SUSPENSION UDC PO PRN (08:45)
[2016-10-19] MEDS: ACETAMINOPHEN TAB 650MG DOSE (2X325MG) PO PRN (08:46)
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
[2016-10-19 14:00] VITALS: BP 123/64
[2016-10-19 20:00] VITALS: BP 133/72
[2016-10-19] MEDS: **NOTE PATIENT COMMENT** MISC XX SCH (21:00)
[2016-10-19] MEDS: MIRALAX *UNIT DOSE* 17GM PACKET PO PRN (21:04)
[2016-10-19] MEDS: BISACODYL 5 MG TAB PO PRN (21:04)
[2016-10-20] MEDS: HYDROmorphone 2 MG TAB PO PRN ×4 (01:50→18:43)
[2016-10-20 06:00] VITALS: BP 134/74
[2016-10-20] MEDS: tiZANidine 4 MG TAB PO SCH ×3 (06:52→20:58)
[2016-10-20 07:32] LABS: MEAN CORPUSCULAR HEMOGLOBIN 30.8 pg (27.0-33.0); MEAN CORPUSCULAR HGB CONC 32.5 g/dl (32.0-36.5); MEAN CORPUSCULAR VOLUME 94.8 fl (80.0-96.0); PLATELET COUNT, AUTOMATED 743 k/mm3 (150-450); RED CELL DISTRIBUTION WIDTH 14.5 % (11.5-14.5); WHITE BLOOD COUNT 7.5 K/mm3 (4.0-10.0)
[2016-10-20 07:38] LABS: REASON FOR REVIEW COMPREHENSIVE REVIEW
[2016-10-20 07:50] LABS: ALBUMIN 2.8 GM/DL (3.2-5.2); ALBUMIN/GLOBULIN RATIO 0.67 (1.00-1.93); ALKALINE PHOSPHATASE 135 U/L (45-117); ALT/SGPT 54 U/L (12-78); ANION GAP 6 MEQ/L (8-16); AST/SGOT 24 U/L (15-37); BILIRUBIN,TOTAL 0.4 MG/DL (0.2-1.0); BLOOD UREA NITROGEN 9 MG/DL (7-18); CALCIUM LEVEL 9.1 MG/DL (8.5-10.1); CARBON DIOXIDE LEVEL 31 MEQ/L (21-32); CHLORIDE LEVEL 100 MEQ/L (98-107); CREATININE FOR GFR 0.73 MG/DL (0.55-1.02); GLOMERULAR FILTRATION RATE > 60.0 (>51); GLUCOSE, FASTING 102 MG/DL (70-105); POTASSIUM SERUM 4.5 MEQ/L (3.5-5.1); SODIUM LEVEL 137 MEQ/L (136-145)
[2016-10-20] MEDS: BETHANECHOL 10 MG TAB PO SCH ×3 (08:25→20:41)
[2016-10-20] MEDS: OMEPRAZOLE 20 MG CAP PO SCH (08:25)
[2016-10-20] MEDS: FLUoxetine 20 MG CAP PO SCH ×2 (08:25→20:42)
[2016-10-20] MEDS: busPIRone 5 MG TAB PO SCH ×2 (08:25→20:41)
[2016-10-20] MEDS: GABAPENTIN 400 MG CAP PO SCH ×3 (08:25→20:42)
[2016-10-20] MEDS: HEPARIN SOD (PORCINE) 5000 UNITS/ML VIAL SC SCH ×2 (08:26→20:43)
[2016-10-20] MEDS: LIDOCAINE 5% (LIDODERM) PATCH TD SCH (08:26)
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
[2016-10-20 14:00] VITALS: BP 123/67
[2016-10-20] MEDS: BISACODYL 5 MG TAB PO PRN (15:42)
[2016-10-20] MEDS: RIZATRIPTAN MLT 10 MG TAB PO PRN (17:45)
[2016-10-20 19:26] VITALS: BP 127/60
[2016-10-20] MEDS: **NOTE PATIENT COMMENT** MISC XX SCH (20:43)
[2016-10-20] MEDS: MOM 30ML SUSPENSION UDC PO PRN (20:43)
[2016-10-20] MEDS: ACETAMINOPHEN TAB 650MG DOSE (2X325MG) PO PRN (20:44)
[2016-10-21] MEDS: HYDROmorphone 2 MG TAB PO PRN ×5 (02:45→20:42)
[2016-10-21] MEDS ORDERED: HYDROmorphone 2 MG TAB PO ONE (03:30)
[2016-10-21] MEDS: tiZANidine 4 MG TAB PO SCH ×3 (06:28→17:35)
[2016-10-21 06:30] VITALS: BP 110/57
[2016-10-21 07:07] LABS: MEAN CORPUSCULAR HEMOGLOBIN 31.1 pg (27.0-33.0); MEAN CORPUSCULAR HGB CONC 32.6 g/dl (32.0-36.5); MEAN CORPUSCULAR VOLUME 95.2 fl (80.0-96.0); RED CELL DISTRIBUTION WIDTH 14.2 % (11.5-14.5); WHITE BLOOD COUNT 6.4 K/mm3 (4.0-10.0)
[2016-10-21 07:23] LABS: ALBUMIN 2.8 GM/DL (3.2-5.2); ALBUMIN/GLOBULIN RATIO 0.74 (1.00-1.93); ALKALINE PHOSPHATASE 128 U/L (45-117); ALT/SGPT 41 U/L (12-78); ANION GAP 6 MEQ/L (8-16); AST/SGOT 20 U/L (15-37); BILIRUBIN,TOTAL 0.3 MG/DL (0.2-1.0); BLOOD UREA NITROGEN 11 MG/DL (7-18); CALCIUM LEVEL 9.1 MG/DL (8.5-10.1); CARBON DIOXIDE LEVEL 32 MEQ/L (21-32); CHLORIDE LEVEL 101 MEQ/L (98-107); CREATININE FOR GFR 0.72 MG/DL (0.55-1.02); GLOMERULAR FILTRATION RATE > 60.0 (>51); GLUCOSE, FASTING 100 MG/DL (70-105); POTASSIUM SERUM 4.5 MEQ/L (3.5-5.1); SODIUM LEVEL 139 MEQ/L (136-145); TOTAL PROTEIN 6.6 GM/DL (6.4-8.2)
[2016-10-21] MEDS: OMEPRAZOLE 20 MG CAP PO SCH (08:46)
[2016-10-21] MEDS: GABAPENTIN 400 MG CAP PO SCH ×3 (08:46→20:40)
[2016-10-21] MEDS: FLUoxetine 20 MG CAP PO SCH ×2 (08:46→20:40)
[2016-10-21] MEDS: busPIRone 5 MG TAB PO SCH ×2 (08:46→20:40)
[2016-10-21] MEDS: BETHANECHOL 10 MG TAB PO SCH ×2 (08:47→20:40)
[2016-10-21] MEDS: HEPARIN SOD (PORCINE) 5000 UNITS/ML VIAL SC SCH ×2 (08:47→20:39)
[2016-10-21] MEDS: LIDOCAINE 5% (LIDODERM) PATCH TD SCH (08:48)
[2016-10-21] MEDS: MIRALAX *UNIT DOSE* 17GM PACKET PO PRN (08:54)
--- NOTE | 2016-10-21 11:20 | IPNPDOC ---
Softball Coach Progress Note DATE OF SERVICE: 10/21/17 DATE OF ADMISSION: Oct 13, 2016 at 16:00 INPATIENT REHABILITATION ADMISSION DAY: #9 SUBJECTIVE: Patient is a 55-year-old white female multiple trauma including possible T12 Valerie D paraparesis related to T12 and L1 vertebral fractures which are now status post decompression with T10-L2 laminectomy rodding and fusion as well as patient with sternal fracture and hematoma including pericardial hematoma and posterior cervical sprain. Patient currently being stabilize for the neck with an [place] collar and the thoracolumbar surgery and fusion with a TLSO clamshell orthosis. Patient does have a moderate anemia related to this event as well as rhabdomyolysis that has cleared. Patient noting more left flank and lower back pain. ALLERGIES: See Below MEDICATIONS: Reviewed, see below. OBJECTIVE: VITAL SIGNS: Please see below. PHYSICAL EXAMINATION: GENERAL: Short obese middle-aged white female in mild muscle skeletal distress laying in bed without her TLSO on. Patient alert and well oriented. HEENT: Normocephalic/atraumatic with [place] collar on. CARDIOVASCULAR: Regular rate and rhythm with normal S1 and S2. 2/4 bilateral radial pulses. LUNGS: All aguirre clear to auscultation. ABDOMEN: Obese, with some ecchymoses from heparin. Bowel sounds normal in all quadrants. ABDOMEN: Obese. As patient is sitting up in her TLSO no palpation or auscultation this morning on exam. NEUROLOGICAL: Patient is alert and oriented 4. Speech is clear coherent and appropriate. Affect is in general pleasant and cooperative but patient is less anxious especially regarding moving. She is following directions from nursing and therapy without problems and using TLSO appropriately. Improved Light Touch in Left Leg, equivalent to right, still decreased in lateral left thigh vs. right. SKIN: Multiple abrasions there are healing. LABORATORY DATA: Reviewed. Please see below. MICROBIOLOGY: Please see below. IMAGING: No new imaging. DVT prophylaxis ordered?: Heparin, MARK hose, and sequential stockings. ASSESSMENT AND PLAN: 1. Rehabilitation of multiple trauma including what appeared to be a T12 Valerie D paraparesis mainly affecting the left lower extremity along with cervical strain and sternal fracture with hematoma: Pain is main problem now. Patient on tizanidine 2 mg 3 times a day which has helped. She is trying to cut down on the Dilaudid. We'll try and get more cooling (Ice vs. K pad) to the back and we are proceeding with TENS trial. These changes seem to be helping. Some improve left leg on LT, now about equivalent to right leg. Still less in lateral left thigh vs. right thigh. Anticipated D/C date is 10/27/16. Rehabilitation Team Rounds: Patient is doing well in PT/OT and has nearly reached D/C goals. We will have her and her use the [address] this weekend to see how they are able to cope and look if things are going well toward D/C to home with family on 10/24 or 10/25. 2. Constipation: I have increased Urecholine to TID. Good response to Bowel program with developing regular pattern. Patient with less stomach discomfort. If BM's continue I will decrease the Urecholine to BID or Daily. 3. Moderate anemia: Improved with today's hemoglobin and hematocrit are 10.1 and 31.0% yesterday and 10.1 and 30.9% today. We will continue to monitor this. 4. DVT prophylaxis: Patient currently on heparin with MARK hose and sequential stockings. 5. Hypoalbuminemia: Improving having climbed from 2.1 on admission to 2.8 today. 6. Thrombocythemia: Platelets now higher at 787,000, but still likely stress response. TIME SPENT: Chart Review, examination and documentation require greater than 35 minutes. Allergies Coded Allergies: Morphine (Verified Adverse Reaction, Intermediate, MEMORY LOSS, OUT OF MIND, NAUSEA, SEVERE CONSTIPATION, 06/14/12) LOSS OF APPETITE Opioid Analgesics (Verified Adverse Reaction, Intermediate, MEMORY LOSS, FELT OUT OF HER MIND, NAUSEA,, 06/14/12) SEVERE, CONSTIPATION, LOSS OF APPETITE. Oxycodone (Verified Adverse Reaction, Intermediate, MEMORY LOSS, OUT OF MIND, NAUSEA, SEVERE CONSTIPATION,, 06/14/12) LOSS OF APPETITE Vital Signs Vital Signs Date Time Temp Pulse Resp B/P (MAP) Pulse Ox O2 Delivery O2 Flow Rate FiO2 10/21/16 08:45 14 Room Air 10/21/16 06:30 97.5 62 110/57 (74) 94 Laboratory Data CBC/BMP Laboratory Tests 10/21/16 06:49 Red Blood Count 3.25 L, Mean Corpuscular Volume 95.2, Mean Corpuscular Hemoglobin 31.1, Mean Corpuscular Hemoglobin Concent 32.6, Red Cell Distribution Width 14.2, Calcium Level 9.1, Aspartate Amino Transf (AST/SGOT) 20 , Alanine Aminotransferase (ALT/SGPT) 41, Alkaline Phosphatase 128 H, Total Bilirubin 0.3, Total Protein 6.6, Albumin 2.8 L Labs 24H Laboratory Tests 2 10/21/16 06:49: Anion Gap 6L, Glomerular Filtration Rate > 60.0, Blood Urea Nitrogen 11, Creatinine 0.72, Sodium Level 139, Potassium Level 4.5, Chloride Level 101, Carbon Dioxide Level 32, Calcium Level 9.1, Aspartate Amino Transf (AST/SGOT) 20 , Alanine Aminotransferase (ALT/SGPT) 41, Alkaline Phosphatase 128H, Total Bilirubin 0.3, Total Protein 6.6, Albumin 2.8L, Albumin/Globulin Ratio 0.74L Microbiology Microbiology 10/13/16 Urine Culture - Final, Complete Current Medications Current Medications Current Medications Acetaminophen (Tylenol Tab) 650 mg Q6HP PRN PO PAIN OR FEVER Last administered on 10/20/16 20:44; Start 10/13/16 at 15:30; Stop 11/12/16 at 15:29 Al Hydrox/Mg Hydrox/Simethicone (Mylanta) 30 ml Q4HP PRN PO DYSPEPSIA Last administered on 10/19/16 06:11; Start 10/13/16 at 15:30; Stop 11/12/16 at 15:29 Bethanechol Chloride (Urecholine) 10 mg BID PO Last administered on 10/17/16 09:51; Start 10/13/16 at 21:00; Stop 10/17/16 at 10:02; Status DC Bethanechol Chloride (Urecholine) 10 mg TID PO Last administered on 10/21/16 08:47; Start 10/17/16 at 16:00; Stop 11/16/16 at 15:59 Bisacodyl (Dulcolax Tab) 5 mg DAILYPRN PRN PO CONSTIPATION Last administered on 10/20/16 15:42; Start 10/13/16 at 15:30; Stop 11/12/16 at 15:29 Buspirone HCl (Buspar) 7.5 mg BID PO Last administered on 10/21/16 08:46; Start 10/13/16 at 21:00; Stop 11/12/16 at 20:59 Fluoxetine HCl (PROzac) 20 mg BID PO Last administered on 10/21/16 08:46; Start 10/13/16 at 21:00; Stop 11/13/16 at 08:59 Fluoxetine HCl (PROzac) 20 mg DAILY PO ; Start 10/14/16 at 09:00; Stop 10/14/16 at 09:00; Status DC Gabapentin (Neurontin) 300 mg TID PO Last administered on 10/14/16 08:22; Start 10/13/16 at 16:00; Stop 10/14/16 at 09:53; Status DC Gabapentin (Neurontin) 400 mg TID PO Last administered on 10/21/16 08:46; Start 10/14/16 at 16:00; Stop 11/13/16 at 15:59 Heparin Sodium (Porcine) (Heparin) 5,000 units Q12H SC Last administered on 08:47; Start 10/13/16 at 21:00; Stop 10/26/16 at 23:55 Home Med (Med Rec Complete!) ASDIRECTED XX ; Start 10/13/16 at 17:15; Stop 12/20 at 17:23; Status DC Hydromorphone HCl (Dilaudid) 2 mg Q4HP PRN PO MODERATE/SEVERE PAIN (PS 5-10) Last administered on 10/21/16 07:43; Start 10/13/16 at 15:30; Stop 10/26/16 at 23:55 Hydromorphone HCl (Dilaudid) 4 mg Q4HP PRN PO SEVERE PAIN (PS 8-10); Start 12/20 at 15:30; Stop 10/14/16 at 00:18; Status DC Hydromorphone HCl (Dilaudid) 4 mg Q4HP PRN PO SEVERE PAIN (PS 8-10) Last administered on 10/20/16 18:43; Start 10/14/16 at 00:18; Stop 10/26/16 at 23:55 Lidocaine (Lidoderm Patch) 1 patch DAILY TD Last administered on 10/21/16 08: 48; Start 10/14/16 at 09:00; Stop 11/13/16 at 08:59 Magnesium Hydroxide (Milk Of Magnesia) 30 ml DAILYPRN PRN PO CONSTIPATION Last administered on 10/20/16 20:43; Start 10/13/16 at 15:30; Stop 11/12/16 at 15:29 Menthol/Methyl Salicylate (Bengay Cream) Neck, ribs, back QIDP PRN TOP PAIN; Start 10/13/16 at 16:15; Stop 11/12/16 at 16:14 Non-Formulary Medication ( See Comment Field Below ) REMOVE LIDODERM PATCH DAILY@21 XX Last administered on 10/20/16 20:43; Start 10/13/16 at 21:00; Stop 11/12/16 at 20:59 Nystatin (Mycostatin) 5 ml TID SSP Last administered on 10/18/16 08:32; Start 10/13/16 at 16:00; Stop 10/18/16 at 15:59; Status DC Omeprazole (PriLOSEC) 20 mg DAILY PO Last administered on 10/21/16 08:46; Start 10/14/16 at 09:00; Stop 11/13/16 at 08:59 Polyethylene Glycol (Miralax) 1 pkt DAILY PRN PO CONSTIPATION Last administered on 10/21/16 08:54; Start 10/13/16 at 15:30; Stop 11/12/16 at 15:29 Rizatriptan Benzoate (Maxalt-[employer]) 10 mg Q2HP PRN PO MIGRAINE Last administered on 10/20/16 17:45; Start 10/13/16 at 15:30; Stop 11/12/16 at 15:29 Simethicone (Mylicon) 80 mg QIDP PRN PO BLOATING Last administered on 02:50; Start 10/13/16 at 15:30; Stop 11/12/16 at 15:29 Sodium Biphosphate/ Sodium Phosphate (Fleet Enema) 1 ea DAILYPRN PRN AL CONSTIPATION Last administered on 10/14/16 22:18; Start 10/13/16 at 15:30; Stop 11/12/16 at 15:29 Sodium Chloride 1,000 ml @ 50 mls/hr Q20H IV Last administered on 10/15/16 09 :32; Start 10/14/16 at 11:57; Stop 10/15/16 at 21:23; Status DC Tizanidine HCl (Zanaflex) 2 mg Q6H PO ; Start 10/21/16 at 12:00; Stop 11/20/16 at 11:59 Tizanidine HCl (Zanaflex) 2 mg Q8H PO Last administered on 10/21/16t 06:28; Start 10/17/16 at 14:00; Stop 10/21/16 at 10:04; Status DC PRUDENCIO SAXENA MD Oct 21, 2016 11:20
[2016-10-21 14:05] VITALS: BP 117/58
[2016-10-21] MEDS ORDERED: BETH10TA4 PO (14:07)
[2016-10-21] MEDS ORDERED: GABA-283 PO (14:07)
[2016-10-21] MEDS ORDERED: PANT40TA2 PO (14:07)
[2016-10-21] MEDS ORDERED: DILA2TAB6 PO (14:07)
[2016-10-21] MEDS ORDERED: LIDO5TD TD (14:07)
[2016-10-21] MEDS ORDERED: ZANA4TAB PO (14:07)
[2016-10-21 20:37] VITALS: BP 113/58
[2016-10-21] MEDS: **NOTE PATIENT COMMENT** MISC XX SCH (20:42)
[2016-10-22] MEDS: tiZANidine 4 MG TAB PO SCH ×4 (00:31→17:06)
[2016-10-22] MEDS: ACETAMINOPHEN TAB 650MG DOSE (2X325MG) PO PRN (00:38)
[2016-10-22 06:00] VITALS: BP 117/58
[2016-10-22] MEDS: HYDROmorphone 2 MG TAB PO PRN ×4 (06:03→22:16)
[2016-10-22 07:30] LABS: ALBUMIN 2.8 GM/DL (3.2-5.2); ALKALINE PHOSPHATASE 123 U/L (45-117); ALT/SGPT 34 U/L (12-78); ANION GAP 8 MEQ/L (8-16); AST/SGOT 16 U/L (15-37); BILIRUBIN,TOTAL 0.3 MG/DL (0.2-1.0); BLOOD UREA NITROGEN 13 MG/DL (7-18); CALCIUM LEVEL 9.1 MG/DL (8.5-10.1); CARBON DIOXIDE LEVEL 28 MEQ/L (21-32); CHLORIDE LEVEL 104 MEQ/L (98-107); CREATININE FOR GFR 0.73 MG/DL (0.55-1.02); GLOMERULAR FILTRATION RATE > 60.0 (>51); GLUCOSE, FASTING 108 MG/DL (70-105); POTASSIUM SERUM 4.2 MEQ/L (3.5-5.1); SODIUM LEVEL 140 MEQ/L (136-145); TOTAL PROTEIN 6.8 GM/DL (6.4-8.2)
[2016-10-22] MEDS: LIDOCAINE 5% (LIDODERM) PATCH TD SCH (08:17)
[2016-10-22] MEDS: GABAPENTIN 400 MG CAP PO SCH ×3 (08:18→22:15)
[2016-10-22] MEDS: busPIRone 5 MG TAB PO SCH ×2 (08:18→22:15)
[2016-10-22] MEDS: BISACODYL 5 MG TAB PO PRN (08:18)
[2016-10-22] MEDS: FLUoxetine 20 MG CAP PO SCH ×2 (08:18→22:15)
[2016-10-22] MEDS: HEPARIN SOD (PORCINE) 5000 UNITS/ML VIAL SC SCH ×2 (08:18→22:15)
[2016-10-22] MEDS: BETHANECHOL 10 MG TAB PO SCH ×2 (08:18→22:15)
[2016-10-22] MEDS: OMEPRAZOLE 20 MG CAP PO SCH (08:18)
[2016-10-22 14:00] VITALS: BP 138/73
[2016-10-22 20:00] VITALS: BP 124/65
[2016-10-22] MEDS: **NOTE PATIENT COMMENT** MISC XX SCH (22:15)
[2016-10-23] MEDS: tiZANidine 4 MG TAB PO SCH ×5 (00:12→23:32)
[2016-10-23 06:00] VITALS: BP 107/57
[2016-10-23] MEDS: HYDROmorphone 2 MG TAB PO PRN ×3 (06:16→21:33)
[2016-10-23] MEDS: RIZATRIPTAN MLT 10 MG TAB PO PRN (06:44)
[2016-10-23] MEDS: LIDOCAINE 5% (LIDODERM) PATCH TD SCH (08:30)
[2016-10-23] MEDS: GABAPENTIN 400 MG CAP PO SCH ×3 (08:32→21:29)
[2016-10-23] MEDS: FLUoxetine 20 MG CAP PO SCH ×2 (08:32→21:29)
[2016-10-23] MEDS: busPIRone 5 MG TAB PO SCH ×2 (08:32→21:29)
[2016-10-23] MEDS: BETHANECHOL 10 MG TAB PO SCH ×2 (08:32→21:29)
[2016-10-23] MEDS: OMEPRAZOLE 20 MG CAP PO SCH (08:32)
[2016-10-23] MEDS: HEPARIN SOD (PORCINE) 5000 UNITS/ML VIAL SC SCH ×2 (08:33→21:28)
[2016-10-23] MEDS: BISACODYL 5 MG TAB PO PRN (08:35)
[2016-10-23 14:00] VITALS: BP 97/67
[2016-10-23 20:00] VITALS: BP 110/73
[2016-10-23] MEDS: **NOTE PATIENT COMMENT** MISC XX SCH (21:00)
[2016-10-24 06:00] VITALS: BP 129/63
[2016-10-24] MEDS: tiZANidine 4 MG TAB PO SCH ×2 (06:10→11:19)
[2016-10-24] MEDS: HYDROmorphone 2 MG TAB PO PRN ×2 (06:21→11:20)
[2016-10-24] MEDS: busPIRone 5 MG TAB PO SCH (08:11)
[2016-10-24] MEDS: GABAPENTIN 400 MG CAP PO SCH (08:11)
[2016-10-24] MEDS: LIDOCAINE 5% (LIDODERM) PATCH TD SCH (08:12)
[2016-10-24] MEDS: BETHANECHOL 10 MG TAB PO SCH (08:12)
[2016-10-24] MEDS: FLUoxetine 20 MG CAP PO SCH (08:12)
[2016-10-24] MEDS: OMEPRAZOLE 20 MG CAP PO SCH (08:12)
[2016-10-24] MEDS: HEPARIN SOD (PORCINE) 5000 UNITS/ML VIAL SC SCH (08:13)
--- NOTE | 2016-10-25 17:01 | PMRDS ---
DATE OF ADMISSION: 10/13/2016 DATE OF DISCHARGE: 10/24/2016 DISCHARGE DIAGNOSES: 1. Rehabilitation of T12 FABIÁN D paraparesis secondary to traumatic T12-L1 fractures with some left lower extremity sensory and some bilateral lower extremity motor deficits. 2. Multiple trauma, including sternal fracture with substernal pericardial hematoma and rib fracture. 3. Rhabdomyolysis. 4. Cervical strain of posterior C6-7 level. 5. Anemia. 6. Gastroesophageal reflux disease. 7. History of migraine headaches. SURGICAL DIAGNOSIS: Status post thoracolumbar decompression and T10-L2 laminectomy/fusion. HISTORY: Patient is a 56-year-old white female who on 10/06/2016 was working with her in their field gathering hay into a hay wagon being pulled by the tractor. Patient accidentally fell off and was unable to get clear of the wheels except by rolling into the center and ended up being rolled over and compression , sustaining the neck strain, sternal trauma, thoracic vertebra comminuted fracture, and L1 plate fracture with the spinal cord compression and pericardial hematoma. This led to rhabdomyolysis and marked pain with constipation. Patient on 10/13/2016, having recovered from the decompression and fusion of the T10-L2 region, was felt to be ready for acute intensive rehabilitation. PROCEDURES: 1. Vascular ultrasound, which showed no deep vein thromboses (DVTs) in the lower extremities. 2. Angiography CT, which showed no evidence of pulmonary embolus but moderate bilateral pleural effusion. 3. A liver ultrasound showing sludge in the gallbladder without stone or wall thickening of the gallbladder but common bile ducts were upper normal to slightly dilated at 8 mm with diffuse fatty infiltrate of the liver and trace perihepatic fluid seen. HOSPITAL COURSE: Patient admitted on 10/13/2016 and evaluated by physical, occupational, and speech therapies along with rehabilitation nursing, physiatry, and internal medicine. Patient had a positive D-dimer test, and so the prior procedures were performed. Patient was felt by me to be at risk for DVTs, especially in light of the patient arriving with greater than 5 days of constipation and limited mobilization. Patient was found to be cognitively cleared and without any dysarthria, dysphagia, and speech therapy, intact and patient focused on physical and occupational therapy, learning how to do safe, appropriate bed mobility without stressing the fusion surgery and how to don and doff her thoracolumbosacral orthosis (TLSO). Patient was kept in the [place] cervical collar to avoid any further strain or irritation to the posterior cervical sprains and tolerated that well. Patient worked very diligently in physical and occupational therapy and made significant progress with those as well as patient started on Urecholine and high-volume enemas, which cleared the constipation and resulted in patient being able to establish a regular bowel program, and Urecholine was decreased then to 10 mg twice a day, and consideration of transitioning, as patient's ambulation increases, to lower levels. Patient was treated with Dilaudid for pain, 2 mg every 4 hours as needed. She did not have any of her migraines and did not require the Maxalt. Patient was on heparin 5000 units subcutaneous every 12 hours for DVT prophylaxis but is transitioned off, as her ambulation has progressed well. Initially in occupational therapy (OT), patient showing standby assistance in basic transfers , moderate assistance for bathing, minimal assist for dressing upper and lower body, standby assistance for grooming, and moderate assistance for toileting. Millard in eating. Good sitting balances and good minus standing balances, which progressed to modified independence in transfers, including rolling in bed and shower and tub transfers. Standby assistance for bathing and upper extremity dressing and modified independence in lower extremity dressing. Minimal assistance in grooming. Sitting and standing balances are now both good. Physical therapy: Patient initially ambulating 58 feet with contact-guard assist and using a front-wheeled walker. Not able to attempt stairs and progressing to 200 or more feet at a time with the front-wheeled walker modified independent. Able to do 12 steps with bilateral rales. Diagnostic laboratory showed anemia with hemoglobin and hematocrit 9.5 and 29% and prior to discharge had increased to 10.1 and 30.9 with comprehensive metabolic panel showing low potassium at 3.1 and carbon dioxide elevated at 36. Normal sodium 142 and chloride of 98 with normal BUN and creatinine. Low iron stores and elevated ferritin. AST of 75 and total creatine kinase of 959 with an albumin of 2.1 with during the course of the admission creatine kinase normalized to 181. Alkaline phosphatase tended to remain in about 120 range. Electrolytes normalized along with BUN and creatinine being normal, though mild elevations of fasting blood sugar were seen at times, and albumin markedly improved to 2.8 from the initial 2.1. DISCHARGE MEDICATIONS: - Urecholine 10 mg twice a day as needed for constipation - gabapentin 400 mg three times a day - Dilaudid 2-4 mg every 6 hours as needed moderate to severe pain - lidocaine 5% patch topically to back and other areas of pain - Zanaflex 4 mg twice a day for spasm, 20 tablets issued - BuSpar 7.5 mg twice a day for anxiety - fluoxetine 20 mg twice a day for depression - pantoprazole 40 mg daily for gastroesophageal reflux disease (GERD) - Maxalt 10 mg as needed migraine - Tylenol 325 mg capsule, three capsules by mouth every 8 hours as needed for pain or fever. COMPLICATIONS: None. DISCHARGE PLANS: Patient discharged to home with with home care, including nursing to monitor anemia and liver and renal function and send results to DR. Bruno. PT and OT to continue to work on ambulation, mobility, activities of daily living (ADLs), strength, and endurance. Patient will followup with [facility] Neurosurgery within the next week and with Dr. Bruno within the next 1-2 weeks. TIME SPENT ON DISCHARGE: Greater than 35 minutes. MTDD
== END 2016-10-24 11:35 | disposition home health service (06) | DRG 560 ==
LOC: UNDOADMIN 13:52 → M ED INP 13:52 → M PM&R 16:00
PROVIDERS: ADMIT Physical Medicine & Rehabilitation; ATTEND Physical Medicine & Rehabilitation
DX: S32.019D Unspecified fracture of first lumbar vertebra, subsequent encounter for fracture with routine healing (principal); B37.0 Candidal stomatitis; G82.20 Paraplegia, unspecified; T79.6XXD Traumatic ischemia of muscle, subsequent encounter; S16.1XXA Strain of muscle, fascia and tendon at neck level, initial encounter; S22.20XD Unspecified fracture of sternum, subsequent encounter for fracture with routine healing; S22.089D Unspecified fracture of T11-T12 vertebra, subsequent encounter for fracture with routine healing; G43.909 Migraine, unspecified, not intractable, without status migrainosus; K21.9 Gastro-esophageal reflux disease without esophagitis; M19.90 Unspecified osteoarthritis, unspecified site; D64.9 Anemia, unspecified; F41.9 Anxiety disorder, unspecified; M79.1 Myalgia; F32.9 Major depressive disorder, single episode, unspecified; E66.9 Obesity, unspecified; M96.1 Postlaminectomy syndrome, not elsewhere classified; K59.00 Constipation, unspecified; E87.6 Hypokalemia; V84 Occupant of special vehicle mainly used in agriculture injured in transport accident; Y92.73 Farm field as the place of occurrence of the external cause; Y99.8 Other external cause status; Y93.H9 Activity, other involving exterior property and land maintenance, building and construction; Z68.36 Body mass index [BMI] 36.0-36.9, adult; Z88.5 Allergy status to narcotic agent; Z98.1 Arthrodesis status; Z79.899 Other long term (current) drug therapy

== ENCOUNTER → 2016-10-27 | Outpatient (REF) | payer MEDICARE ==
[~2016-10-27] MED LIST changes: +BETH10TA4 PO; +BUSP1TAB PO; +DILA2TAB6 PO; +FLUO20CA19 PO; +GABA-282 PO; +GABA-283 PO; +LIDO5TD TD; +LIDO5TD TOP; +MAXA10TA14 PO; +PANT40TA2 PO; +TYLE325C PO; +ZANA4TAB PO
[2016-10-27 17:51] LABS: MEAN CORPUSCULAR HEMOGLOBIN 31.3 pg (27.0-33.0); MEAN CORPUSCULAR HGB CONC 32.6 g/dl (32.0-36.5); MEAN CORPUSCULAR VOLUME 95.9 fl (80.0-96.0); RED CELL DISTRIBUTION WIDTH 13.9 % (11.5-14.5); WHITE BLOOD COUNT 4.7 K/mm3 (4.0-10.0)
[2016-10-27 17:59] LABS: ALBUMIN 3.3 GM/DL (3.2-5.2); ALBUMIN/GLOBULIN RATIO 0.89 (1.00-1.93); ALKALINE PHOSPHATASE 125 U/L (45-117); ALT/SGPT 33 U/L (12-78); ANION GAP 7 MEQ/L (8-16); AST/SGOT 19 U/L (15-37); BILIRUBIN,TOTAL 0.4 MG/DL (0.2-1.0); BLOOD UREA NITROGEN 8 MG/DL (7-18); CALCIUM LEVEL 9.3 MG/DL (8.5-10.1); CARBON DIOXIDE LEVEL 31 MEQ/L (21-32); CHLORIDE LEVEL 99 MEQ/L (98-107); CREATININE FOR GFR 0.77 MG/DL (0.55-1.02); GLOMERULAR FILTRATION RATE > 60.0 (>51); GLUCOSE, FASTING 121 MG/DL (70-105); POTASSIUM SERUM 4.8 MEQ/L (3.5-5.1); SODIUM LEVEL 137 MEQ/L (136-145)
== END ==
LOC: M LAB REF 16:17
PROVIDERS: ATTEND Physical Medicine & Rehabilitation
DX: D64.9 Anemia, unspecified (principal)

== ENCOUNTER → 2016-10-31 | Outpatient (REF) | payer MEDICARE ==
[2016-10-31 15:38] LABS: MEAN CORPUSCULAR HEMOGLOBIN 31.5 pg (27.0-33.0); MEAN CORPUSCULAR HGB CONC 32.1 g/dl (32.0-36.5); MEAN CORPUSCULAR VOLUME 98.1 fl (80.0-96.0); RED CELL DISTRIBUTION WIDTH 13.8 % (11.5-14.5); WHITE BLOOD COUNT 3.9 K/mm3 (4.0-10.0)
[2016-10-31 16:00] LABS: ALBUMIN 3.4 GM/DL (3.2-5.2); ALBUMIN/GLOBULIN RATIO 0.92 (1.00-1.93); ALKALINE PHOSPHATASE 115 U/L (45-117); ALT/SGPT 22 U/L (12-78); ANION GAP 3 MEQ/L (8-16); AST/SGOT 16 U/L (15-37); BILIRUBIN,TOTAL 0.3 MG/DL (0.2-1.0); BLOOD UREA NITROGEN 13 MG/DL (7-18); CALCIUM LEVEL 9.5 MG/DL (8.5-10.1); CARBON DIOXIDE LEVEL 35 MEQ/L (21-32); CHLORIDE LEVEL 100 MEQ/L (98-107); CREATININE FOR GFR 0.79 MG/DL (0.55-1.02); GLOMERULAR FILTRATION RATE > 60.0 (>51); GLUCOSE, FASTING 80 MG/DL (70-105); POTASSIUM SERUM 4.6 MEQ/L (3.5-5.1); SODIUM LEVEL 138 MEQ/L (136-145); TOTAL PROTEIN 7.1 GM/DL (6.4-8.2)
== END ==
LOC: M LAB REF 14:00
PROVIDERS: ATTEND Physical Medicine & Rehabilitation
DX: D64.9 Anemia, unspecified (principal); M62.82 Rhabdomyolysis